=== PATIENT | female | born 1970 | race Caucasian/White ===

== ENCOUNTER → 2018-05-07 | Outpatient (CLI) | payer OTHER ==
--- NOTE | 2018-05-07 14:34 | US ---
EXAM DESCRIPTION: Venous,Lower Extremity RT: ULTRASOUND. CLINICAL HISTORY: PAIN IN RT LEG COMPARISON: None Available. TECHNIQUE: Valenzuela-scale and doppler sonographic evaluation of the deep venous system of the right lower extremity. FINDINGS: Doppler evaluation shows normal color flow and normal phasicity and augmentation of the right common femoral vein, femoral vein, popliteal vein, greater saphenous vein, peroneal, and posterior tibial vein. The right lower extremity deep veins showed normal occlusion with transducer pressure. Valenzuela-scale survey showed no echogenic thrombus within these veins. IMPRESSION: 1. Duplex ultrasound evaluation of the right lower extremity deep venous system showing no evidence of thrombosis. Electronically signed by: Bandar Muniz MD 05/07/2018 2:33 PM BIOLOGY PROFESSOR
== END ==
LOC: US 12:46
PROVIDERS: ATTEND Nurse Practitioner Family
DX: M79.609 Pain in unspecified limb (principal)